=== PATIENT | female | born 1940 | race Caucasian/White ===

== ENCOUNTER 2022-04-19 02:07 | Inpatient (IN) | payer OTHER ==
[2022-04-19] MEDS ORDERED: IBUPROFEN 400 MG TAB ONE (02:43)
[2022-04-19] MEDS ORDERED: IBUPROFEN 200 MG TAB PO ONE (02:43)
[2022-04-19] MEDS ORDERED: MAGNESIUM SULFATE 1 gm IVPB 1 GM/100 ML BAG IV ONE (02:44)
[2022-04-19] MEDS ORDERED: NA CHLORIDE 0.9% 1,000 ML ONE ×3 (02:44→08:22)
[2022-04-19 03:17] LABS: Absolute Lymphocytes (CBC) 0.5 K/uL (0.7-4.9); Hematocrit 32.2 % (36.0-45.0); Lymphocytes % 1.9 % (15.3-44.8); MCV 87.1 fL (80-100); MPV 7.4 fL (7.6-11.3)
[2022-04-19 03:20] LABS: Protime INR 1.35
[2022-04-19 03:22] LABS: Urine Blood 1+ (Negative); Urine Glucose Negative (Negative); Urine Protein 1+ (Negative)
[2022-04-19 03:27] LABS: Albumin 2.2 g/dL (3.4-5.0); Bilirubin Total 0.8 mg/dL (0.2-1.0); Potassium 3.5 mmol/L (3.5-5.1)
[2022-04-19 03:38] LABS: SARS-COV-2 RT PCR NEGATIVE (NEGATIVE)
[2022-04-19] MEDS ORDERED: NA CHLORIDE 0.9% 100 ML IV ONE ×2 (03:38→08:21)
[2022-04-19] MEDS ORDERED: PIPERACIL/TAZO 3.375 GM VIAL IV ONE ×2 (03:38→08:22)
[2022-04-19 03:54] LABS: Urine Bacteria <20 /HPF (<20); Urine Mucus Slight /HPF (None Seen); Urine RBC <5 /HPF (None Seen)
[2022-04-19 04:22] LABS: Blood Morphology Comment NOT SEEN (NOT SEEN); Platelet Estimate ADEQ
[2022-04-19] MEDS ORDERED: AMIODARONE HCL 150 MG/3 ML INJ IV ONE (04:40)
[2022-04-19] MEDS ORDERED: AMIODARONE IN DEXTROSE,ISO-OSM 360 MG/200 ML BAG IV ONE (04:40)
[2022-04-19] MEDS ORDERED: D5W 100 ML IV ONE (04:40)
--- NOTE | 2022-04-19 05:26 | ER ---
Nurse's Notes [facility] Name: Prosper Ríos Age: 82 yrs Sex: Female : 1940 Arrival Date: 04/19/2022 Time: 02:09 Bed 5 Private MD: Diagnosis: Persistent atrial fibrillation-with RVR;Hypotension, unspecified;Dehydration;Diarrhea, unspecified Presentation: 04/19 02:10 Chief complaint: EMS states: She has been feeling weak with diarrhea and a cough. She kd3 went to [place] where she was tested for covid and flu and was negative but she still feels ill. Initial Sepsis Screen: Does the patient meet any 2 criteria? Temp <36.0*C (96.8*F)) or > 38.3*C (100.9*F). HR > 90 bpm. 02:10 Method Of Arrival: EMS: [facility] kd3 02:17 Coronavirus screen: Vaccine status: Patient reports receiving the 2nd dose of the covid kd3 vaccine. Ebola Screen: No symptoms or risks identified at this time. 02:18 Initial Sepsis Screen: Does the patient have a suspected source of infection? Yes: kd3 Productive cough/pneumonia. Risk Assessment: Do you want to hurt yourself or someone else? Patient reports no desire to harm self or others. Onset of symptoms was April 19, 2022. 02:18 Acuity: DWAYNE 3 kd3 Triage Assessment: 02:18 General: Appears ill, Behavior is calm, cooperative. Pain: Denies pain. Neuro: Level of kd3 Consciousness is awake, alert, obeys commands. Cardiovascular: Patient's skin is warm and dry. Respiratory: Breath sounds with crackles bilaterally. Historical: - Allergies: 02:18 Neomycin Sulfate; kd3 02:18 Sulfa (Sulfonamide Antibiotics); kd3 - Immunization history:: Adult Immunizations up to date. - Social history:: Smoking status: unknown. - Family history:: not pertinent. - Hospitalizations: : No recent hospitalization is reported. Screenin:20 [facility] ED Fall Risk Assessment (Adult) History of falling in the last 3 months, kd3 including since admission No falls in past 3 months (0 pts) Confusion or Disorientation No (0 pts) Intoxicated or Sedated No (0 pts) Impaired Gait No (0 pts) Mobility Assist Device Used No (0 pt) Altered Elimination No (0 pt) Score/Fall Risk Level 0 - 2 = Low Risk. Abuse screen: Denies threats or abuse. Denies injuries from another. Nutritional screening: No deficits noted. Tuberculosis screening: No symptoms or risk factors identified. Assessment: 03:28 General: Appears ill, Behavior is calm, cooperative. Neuro: Level of Consciousness is kd3 awake, alert, obeys commands, Oriented to person, place, time, situation. Cardiovascular: Patient's skin is warm and dry. Respiratory: Airway is patent Trachea midline Respiratory effort is even, unlabored, Respiratory pattern is regular, symmetrical. GI: Reports diarrhea. 05:23 General: Appears comfortable, Behavior is calm, cooperative. Neuro: Level of kd3 Consciousness is awake, alert, obeys commands, Oriented to person, place, time, situation. Cardiovascular: Patient's skin is warm and dry. Respiratory: Airway is patent Trachea midline Respiratory effort is even, unlabored, Respiratory pattern is regular, symmetrical, Sputum is thick, green. 05:28 Reassessment: Patient and/or family updated on plan of care and expected duration. Pain kd3 level reassessed. Patient is alert, oriented x 3, equal unlabored respirations, skin warm/dry/pink. 10:37 Reassessment: Levophed titrated down to 0.15 mcg/kg per Dr. Roy. [facility] 11:40 Reassessment: new amiodarone infusing at 0.5 mg/min. please see [facility] for further [facility] charting. 11:52 Reassessment: Levophed titrated down to 0.1 mcg/kg per Dr. Roy. [facility] 13:03 Reassessment: attempted to call report to ICU. stated she is transferring a patient to [facility] 4th floor to make room for this patient and will call me back. Vital Signs: 02:10 BP 131 / 83; Pulse 120; Resp 19; Temp 100.9; Pulse Ox 98% on R/A; Weight 49.9 kg; kd3 Height 5 ft. 4 in. (162.56 cm); 03:28 BP 99 / 58; Pulse 142; Resp 21; Temp 98.7(O); Pulse Ox 100% on R/A; kd3 04:49 BP 82 / 59; Pulse 127; Resp 18; Pulse Ox 95% on R/A; kd3 05:23 BP 71 / 58; Pulse 110; Resp 20; Pulse Ox 94% on R/A; kd3 06:14 BP 76 / 63; Pulse 105; Resp 19; Pulse Ox 98% on R/A; kd3 06:36 BP 104 / 73; Pulse 113; Resp 19; Pulse Ox 97% ; kd3 02:10 Body Mass Index 18.88 (49.90 kg, 162.56 cm) kd3 ED Course: 02:09 Patient arrived in ED. wm 02:10 Chema Donald MD is Attending Physician. rn 02:10 Marah Gudino RN is Primary Nurse. kd3 02:18 Triage completed. kd3 02:18 Arm band placed on left wrist. kd3 02:20 Patient has correct armband on for positive identification. kd3 02:35 Inserted saline lock: 20 gauge in right antecubital area, using aseptic technique. kd3 Blood collected. Maintain EMS IV. Dressing intact. Good blood return noted. Site clean \T\ dry. Gauge \T\ site: 20 g r forearm . 02:35 Patient maintains SpO2 saturation greater than 95% on room air. kd3 02:37 Chest Single View XRAY In Process Unspecified. EDMS 02:39 EKG done, by ED staff, reviewed by Chema Donald MD. tw5 03:28 COVID-19/FLU A+B Sent. kd3 03:28 Blood Culture Adult (2) Sent. kd3 03:28 Lactate w/ 2H reflex if indic. Sent. kd3 03:28 Urine Culture Sent. kd3 03:28 Urine Microscopic Only Sent. kd3 04:06 CT Abd/Pelvis - IV Contrast Only In Process Unspecified. EDMS 05:25 Ruiz Roy MD is Hospitalizing Provider. rn 05:39 Assisted provider with central line placement. Set up central line tray. as6 05:41 Assisted provider with central line placement. Triple lumen line placed in right as6 femoral. Line placed by Chema Donald MD Placement verified by blood return, Dressed with Tegaderm, Blood was collected. Patient tolerated well. 11:40 Patient admitted, IV remains in place. kc6 Administered Medications: 02:53 Drug: NS 0.9% 1000 ml Route: IV; Rate: 1000 ml; Site: right forearm; tw5 05:29 Follow up: IV Status: Completed infusion; IV Intake: 1000ml kd3 02:53 Drug: Motrin (ibuprofen) 600 mg Route: PO; tw5 03:27 Follow up: Response: No adverse reaction; Temperature is decreased kd3 02:53 Drug: Magnesium Sulfate 1 grams Route: IVPB; Infused Over: 1 hrs; Site: right tw5 antecubital; 05:29 Follow up: IV Status: Completed infusion kd3 03:27 Drug: NS 0.9% 1000 ml Route: IV; Rate: 1000 ml; Site: right antecubital; kd3 05:28 Follow up: IV Status: Completed infusion; IV Intake: 1000ml kd3 04:49 Drug: amiodarone 150 mg Volume: 100 ml; Route: IVPB; Infused Over: 10 mins; Site: right kd3 antecubital; 05:28 Follow up: IV Status: Completed infusion; IV Intake: 100ml kd3 05:02 Drug: Zosyn (piperacillin-tazobactam) 3.375 grams Route: IVPB; Infused Over: 60 mins; kd3 Site: right forearm; 05:02 Follow up: IV Status: Completed infusion; IV Intake: 100ml kd3 05:02 Drug: amiodarone 900 mg, D5W 500 ml Route: IVPB; Rate: 1 mg/min; Site: right kd3 antecubital; 06:13 Drug: Levophed (norepinephrine) 0.1 mcg/kg/min Route: IV; Rate: calculated rate; Site: kd3 right femoral; 06:13 Follow up: Rate change 0.2 mcg/kg/min kd3 Medication: 02:20 VIS not applicable for this client. kd3 Intake: 05:02 IV: 100ml; Total: 100ml. kd3 05:28 IV: 100ml; Total: 200ml. kd3 05:28 IV: 1000ml; Total: 1200ml. kd3 05:29 IV: 1000ml; Total: 2200ml. kd3 Output: 03:29 Urine: 500ml (Straight Cath); Total: 500ml. kd3 Outcome: 05:26 Decision to Hospitalize by Provider. rn 11:40 Admitted to ER Hold. Please see [facility] for further documentation. kc6 11:40 Condition: stable 11:40 Instructed on the need for admit. 14:29 Patient left the ED. jl7 Signatures: Dispatcher [employer] EDSC Chema Donald MD MD rn Leal, Jahala, RN RN jl7 Valery Estrada Tiffany tw5 Daniel Gaytan RN RN as6 Marah Gudino RN RN kd3 Indu Fajardo RN RN kc6 Corrections: (The following items were deleted from the chart) 02:19 02:18 Allergies: No Known Allergies; kd3 kd3 11:41 11:40 Reassessment: new amiodarone infusing at 0.5 mg/min kc6 kc6
--- NOTE | 2022-04-19 05:26 | EDPHYS ---
Physician Documentation [facility] Name: Prosper Ríos Age: 82 yrs Sex: Female : 1940 Arrival Date: 04/19/2022 Time: 02:09 Bed 5 Private MD: ED Physician Chema Donald HPI: 04/19 02:37 This 82 yrs old Female presents to ER via EMS with complaints of Weakness, Diarrhea. rn 02:37 The patient presents to the emergency department with weakness of the. rn 02:38 The patient presents to the emergency department with diarrhea. Onset: The rn symptoms/episode began/occurred 3 day(s) ago. Possible causes: unknown. The symptoms are aggravated by nothing. The symptoms are alleviated by nothing. Associated signs and symptoms: Pertinent positives: diarrhea, fever, nausea, cough. Severity of symptoms: At their worst the symptoms were moderate in the emergency department the symptoms are unchanged. The patient has not experienced similar symptoms in the past. The patient has been recently seen by a physician:. Pt reports feeling sick over last few days, with cough/congestion/nausea/diarrhea. Grandchildren had similar illness recently and she is concerned she caught it from them. Recently tested for COVID/Flu and was neg. Reports generalized weakness and reports BP has been running low, in 80s systolic. . Historical: - Allergies: 02:18 Neomycin Sulfate; kd3 02:18 Sulfa (Sulfonamide Antibiotics); kd3 - Immunization history:: Adult Immunizations up to date. - Social history:: Smoking status: unknown. - Family history:: not pertinent. - Hospitalizations: : No recent hospitalization is reported. ROS: 02:38 Constitutional: + fever Eyes: Negative for injury, pain, redness, and discharge, Neck: rn Negative for injury, pain, and swelling, Cardiovascular: + heart racing Respiratory: + cough Abdomen/GI: + diarrhea MS/Extremity: Negative for injury and deformity, Skin: Negative for injury, rash, and discoloration, Neuro: + generalized weakness Exam: 02:38 Constitutional: This is a well developed, well nourished patient who is awake, alert, rn and in no acute distress. Head/Face: Normocephalic, atraumatic. Eyes: sunken eyes ENT: very dry MM Cardiovascular: Tachycardic, regular Respiratory: No increased work of breathing, no retractions or nasal flaring. Abdomen/GI: soft, non-tender, no peritoneal signs Skin: Warm, dry MS/ Extremity: Pulses equal, no cyanosis. Neuro: Awake and alert, GCS 15 02:51 ECG was reviewed by the Attending Physician. rn Vital Signs: 02:10 BP 131 / 83; Pulse 120; Resp 19; Temp 100.9; Pulse Ox 98% on R/A; Weight 49.9 kg; kd3 Height 5 ft. 4 in. (162.56 cm); 03:28 BP 99 / 58; Pulse 142; Resp 21; Temp 98.7(O); Pulse Ox 100% on R/A; kd3 04:49 BP 82 / 59; Pulse 127; Resp 18; Pulse Ox 95% on R/A; kd3 05:23 BP 71 / 58; Pulse 110; Resp 20; Pulse Ox 94% on R/A; kd3 06:14 BP 76 / 63; Pulse 105; Resp 19; Pulse Ox 98% on R/A; kd3 06:36 BP 104 / 73; Pulse 113; Resp 19; Pulse Ox 97% ; kd3 02:10 Body Mass Index 18.88 (49.90 kg, 162.56 cm) kd3 Procedures: 05:55 Central Line: the site was prepped with Betadine, in sterile fashion, a triple lumen rn catheter was inserted, in the right femoral vein, in 1 attempts. placement was verified, by blood return, the site was dressed with Tegaderm, using sterile technique, the patient tolerated the procedure, well. MDM: 02:10 Patient medically screened. rn 02:47 ED course: Pt had 3 transient episodes of SVT, 2 resolved within a minute or so, one rn require conversion with vagal maneuver. . 03:28 ED course: 1L fluids given by EMS. 2 L fluid boluses ordered here. . rn 04:27 Differential diagnosis: Nonspecific abd pain, gastritis, pancreatitis, appendicitis, rn diverticulitis, viral gastroenteritis, gastroenteritis, viral syndrome, COVID, FLu, dehydration, afib with rvr, electrolyte disorder, acute renal failure. Data reviewed: vital signs, nurses notes, lab test result(s). ED course: Pt afebrile now, feels slightly better, HR still in 140s and BP borderline despite 2.5 L bolus, decision made to treat afib with RVR to try and correct BP, amiodarone chosen due to low blood pressure. Pt and report never diagnosed with afib before. . 04:55 ED course: HR with marked improvement from 140s/150s to 110s with BP holding steady. Pt rn feels better.. 04:59 I considered the following discharge prescriptions or medication management in the rn emergency department Medications were administered in the Emergency Department. See MAR. Independent interpretation of the following test(s) in the Emergency Department EKG: See my EKG interpretation above X-Ray: My interpretation is CXR neg for lobar pneumonia or pneumothorax. Historians other than the Patient: Spouse/Significant Other: States no previous hx of afib. Post IV fluid administration reassessment for Sepsis: Client prescribed 30 mL/kg IVF. Sepsis focused reassessment complete. Current patient vital signs reviewed: Yes. Counseling: I had a detailed discussion with the patient and/or guardian regarding: the historical points, exam findings, and any diagnostic results supporting the discharge/admit diagnosis, lab results, radiology results, the need for further work-up and treatment in the hospital. ED course: Patient without focal source at this time, most likely viral source given grandchildren will recently. + elevated lactate and given IVF with some improvement in BP. No signs of shock at this time. . 05:24 Response to treatment: the patient's symptoms have mildly improved after treatment, and rn as a result, I will admit patient. 05:56 ED course: Central line placed for persistent hypotension despite more than 30ml/kg rn bolus and HR control. Will start pressor at low dose to maintain MAP > 65. Pt reports feels better entire time this was happening. . 06:32 ED course: Lovenox ordered in [employer] for her afib, notified nurse and not ordered in rn [employer] as to not have double administration.. 04/19 02:10 Order name: Blood Culture Adult (2) rn 04/19 02:10 Order name: CBC with Diff; Complete Time: 04:22 rn 04/19 02:10 Order name: CMP; Complete Time: 03:48 rn 04/19 02:10 Order name: Lactate w/ 2H reflex if indic.; Complete Time: 03:48 rn 04/19 02:10 Order name: Protime (+inr); Complete Time: 03:27 rn 04/19 02:10 Order name: Ptt, Activated; Complete Time: 03:27 rn 04/19 02:10 Order name: Urine Culture rn 04/19 02:10 Order name: Urine Microscopic Only; Complete Time: 04:12 rn 04/19 02:10 Order name: Chest Single View XRAY rn 04/19 02:10 Order name: COVID-19/FLU A+B; Complete Time: 03:48 rn 04/19 03:22 Order name: Urine Dipstick-Ancillary; Complete Time: 03:27 EDMS 04/19 03:30 Order name: Manual Differential; Complete Time: 04:22 EDMS 04/19 05:09 Order name: Lactate w/ 2H reflex if indic.: repeat at 0530 rn 04/19 06:33 Order name: Lactate Sepsis 2 HR Follow-up EDMN 04/19 02:10 Order name: EKG; Complete Time: 02:12 rn 04/19 02:10 Order name: Accucheck; Complete Time: 05:03 rn 04/19 02:10 Order name: Cardiac monitoring; Complete Time: 02:54 rn 04/19 02:10 Order name: EKG - Nurse/Tech; Complete Time: 02:54 rn 04/19 02:10 Order name: IV Saline Lock - Large Bore; Complete Time: 02:54 rn 04/19 02:10 Order name: Labs collected and sent; Complete Time: 02:54 rn 04/19 02:10 Order name: CT Abd/Pelvis - IV Contrast Only rn 04/19 08:32 Order name: CT EDMN 04/19 02:10 Order name: O2 Per Protocol; Complete Time: 03:17 rn 04/19 02:10 Order name: O2 Sat Monitoring; Complete Time: 03:17 rn 04/19 02:10 Order name: Vital Signs; Complete Time: 03:18 rn EC:51 Rate is 118 beats/min. Rhythm is regular. QRS Coleman is Normal. MN interval is normal. rn QRS interval is normal. QT interval is normal. No Q waves. T waves are Normal. No ST changes noted. Clinical impression: Sinus tachycardia. Interpreted by me. Reviewed by me. Administered Medications: 02:53 Drug: NS 0.9% 1000 ml Route: IV; Rate: 1000 ml; Site: right forearm; tw5 05:29 Follow up: IV Status: Completed infusion; IV Intake: 1000ml kd3 02:53 Drug: Motrin (ibuprofen) 600 mg Route: PO; tw5 03:27 Follow up: Response: No adverse reaction; Temperature is decreased kd3 02:53 Drug: Magnesium Sulfate 1 grams Route: IVPB; Infused Over: 1 hrs; Site: right tw5 antecubital; 05:29 Follow up: IV Status: Completed infusion kd3 03:27 Drug: NS 0.9% 1000 ml Route: IV; Rate: 1000 ml; Site: right antecubital; kd3 05:28 Follow up: IV Status: Completed infusion; IV Intake: 1000ml kd3 04:49 Drug: amiodarone 150 mg Volume: 100 ml; Route: IVPB; Infused Over: 10 mins; Site: right kd3 antecubital; 05:28 Follow up: IV Status: Completed infusion; IV Intake: 100ml kd3 05:02 Drug: Zosyn (piperacillin-tazobactam) 3.375 grams Route: IVPB; Infused Over: 60 mins; kd3 Site: right forearm; 05:02 Follow up: IV Status: Completed infusion; IV Intake: 100ml kd3 05:02 Drug: amiodarone 900 mg, D5W 500 ml Route: IVPB; Rate: 1 mg/min; Site: right kd3 antecubital; 06:13 Drug: Levophed (norepinephrine) 0.1 mcg/kg/min Route: IV; Rate: calculated rate; Site: kd3 right femoral; 06:13 Follow up: Rate change 0.2 mcg/kg/min kd3 Disposition Summary: 04/19/22 05:26 Hospitalization Ordered Hospitalization Status: Inpatient Admission rn Provider: Ruiz Roy rn Condition: Fair rn Problem: new rn Symptoms: have improved rn Bed/Room Type: Standard rn Location: Intensive Care Unit(04/19/22 12:51) dw Room Assignment: 2-(04/19/22 12:51) Diagnosis - Persistent atrial fibrillation - with RVR rn - Hypotension, unspecified rn - Dehydration rn - Diarrhea, unspecified rn Forms: - Medication Reconciliation Form rn - SBAR form machine turner time excluding procedures: 05:24 Critical care time: Bedside Care: 35 minutes. Total time: 35 minutes rn Signatures: Dispatcher [facility] EDMS [place], Poornima, RN RN dw Chema Donald MD MD rn Garcia, Cindy, RN RN cg Wood, Tiffany tw5 Marah Gudino RN RN kd3 Corrections: (The following items were deleted from the chart) 02:19 02:18 Allergies: No Known Allergies; kd3 kd3 06:32 05:26 Intensive Care Unit rn cg 06:32 05:26 rn cg 12:51 06:32 [facility] ER HOLD cg dw 12:51 06:32 ERHOLD- cg dw
[2022-04-19] MEDS ORDERED: NOREPINEPHRINE BITARTRATE/D5W 4 MG/250 ML BAG IV ONE ×2 (06:09→12:48)
[2022-04-19] MEDS ORDERED: ONDANSETRON 4 MG/2 ML VIAL IV PRN (06:37)
[2022-04-19] MEDS ORDERED: ENOXAPARIN 100 MG/ML SYR SQ SCH (06:37)
[2022-04-19] MEDS ORDERED: D5.45NS W/KCL 20MEQ 1,000 ML IV SCH (06:37)
[2022-04-19] MEDS ORDERED: ACETAMINOPHEN 500 MG TAB PO PRN (06:37)
[2022-04-19] MEDS ORDERED: AMIODARONE HCL 900 MG in Dextrose 5%-Water 482 ML IV SCH (06:37)
[2022-04-19] MEDS ORDERED: D5.45NS W/KCL 20MEQ 1,000 ML IV ONE (06:44)
--- NOTE | 2022-04-19 08:31 | RAD REPORT ---
EXAM DESCRIPTION: CT - Thorax Wo Con - 04/19/2022 8:20 am CLINICAL HISTORY: sob COMPARISON: 2011 TECHNIQUE: Computed axial tomography of the chest was obtained. Contrast was not requested. All CT scans are performed using dose optimization technique as appropriate and may include automated exposure control or mA/KV adjustment according to patient size. FINDINGS: The evaluation of mediastinum, simi and vessels is limited secondary to lack of IV contras t administration. 4 x 2 centimeter right upper lobe consolidation. Mild patchy opacities within the lungs bilaterally. Left upper lobe opacity without significant change from the prior exam likely a combination of bronch iectasis and scarring. Mild additional chronic appearing lung opacities. Mild right middle lobe and l ingular atelectasis No mediastinal or hilar lymphadenopathy is seen. Small bilateral pleural effusions. No pericardial fusion IMPRESSION: Small right upper lobe consolidation probably pneumonia Additional mild bilateral pulmonary opacities likely additional infection. Small bilateral pleural effusions
[2022-04-19] MEDS: NA CHLORIDE 0.9% 1,000 ML IV SCH ×2 (08:56→18:01)
[2022-04-19] MEDS: PIPER TAZO 3.375 GM in NA CHLORIDE 0.9% 100 ML IV SCH ×2 (08:57→18:00)
--- NOTE | 2022-04-19 14:28 | ECHO ---
HEIGHT: 5 ft 4 in WEIGHT: 110 lb 0.171 oz DATE OF STUDY: 04/19/[address]: Leonardo Roy MD 2-DIMENSIONAL: YES M.MODE: YES DOPPLER: YES COLOR FLOW: YES TDS: PORTABLE: YES DEFINITY: BUBBLE STUDY: DIAGNOSIS: ATRIAL FIBRILLATION CARDIAC HISTORY: CATHERIZATION: NO SURGERY: NO PROSTHETIC VALVE: NO PACEMAKER: NO MEASUREMENTS (cm) DIASTOLIC (NORMALS) SYSTOLIC (NORMALS) IVSd 0.8 (0.6-1.2) LA Diam 2.3 (1.9-4.0) LVEF 54% LVIDd 3.6 (3.5-5.7) LVIDs 2.6 (2.0-3.5) %FS 28% LVPWd 1.0 (0.6-1.2) Ao Diam 2.4 (2.0-3.7) 2 DIMENSIONAL ASSESSMENT: RIGHT ATRIUM: NORMAL LEFT ATRIUM: NORMAL RIGHT VENTRICLE: NORMAL LEFT VENTRICLE: NORMAL TRICUSPID VALVE: MILD TRICUSPID REGURGITATION MITRAL VALVE: MILD MITRAL REGURGITATION PULMONIC VALVE: NORMAL AORTIC VALVE: NORMAL PERICARDIAL EFFUSION: SMALL AORTIC ROOT: NORMAL LEFT VENTRICULAR WALL MOTION: NORMAL DOPPLER/COLOR FLOW: SEE BELOW COMMENTS: 1. NORMAL LEFT VENTRICULAR EJECTION FRACTION 50-55% 2. ATRIAL FIBRILLATION 3. MILD MITRAL REGURGITATION 4. MILD TRICUSPID REGURGITATION 5. SMAL PERICARDIAL EFFUSION TECHNOLOGIST: BROCK LANDON
--- NOTE | 2022-04-19 16:10 | RAD REPORT ---
EXAM DESCRIPTION: RAD - Chest Single View - 04/19/2022 2:36 am CLINICAL HISTORY: The patient is 82 years old and is Female; COUGH TECHNIQUE: Frontal view of the chest. COMPARISON: No relevant prior studies available. FINDINGS: Lungs: Prominent interstitial markings which may represent chronic changes and/or inters titial edema. Peribronchial thickening. Linear opacity in the mid right lung suggestive of fluid in the fissure. Pleural space: Unremarkable. No pneumothorax. Heart: Unremarkable. Mediastinum: Unremarkable. Bones/joints: Unremarkable. Soft tissues: Clips overlying the left axillary region. IMPRESSION: Prominent interstitial markings which may represent chronic changes and/or interstitial edema. Peribronchial thickening. Electronically signed by: Godfrey Holcomb MD 04/19/2022 2:50 AM POLITICAL SCIENCE RESEARCH ASSISTANT Due to temporary technical issues with the PACS/Fluency reporting system, reports are being signed by the in house radiologists without review as a courtesy to insure prompt reporting. The interpreting radiologist is fully responsible for the content of the report.
--- NOTE | 2022-04-19 16:13 | RAD REPORT ---
EXAM DESCRIPTION: CT - Abdomen Pelvis W Contrast - 04/19/2022 6:08 am CLINICAL HISTORY: The patient is 82 years old and is Female; fever, diarrhea TECHNIQUE: Axial computed tomography images of the abdomen and pelvis with intravenous contrast. S agittal and coronal reformatted images were created and reviewed. This CT exam was performed using one or more of the following dose reduction techniques: automated exposure control, adjustment of t he mA and/or kV according to patient size, and/or use of iterative reconstruction technique. COMPARISON: No relevant prior studies available. FINDINGS: LUNG BASES: Suggestion of minimal atelectasis within the right middle lobe is present. PLEURAL SPACE: Bilateral pleural effusions are present, left greater than right. ABDOMEN: LIVER: Suggestion of a few small cyst within the liver are noted. GALLBLADDER AND BILE DUCTS: Multiple gallstones fill the gallbladder. Several gallstones demonst rates central air. There is no gallbladder wall thickening or pericholecystic fluid. PANCREAS: No ductal dilation. No mass. SPLEEN: Unremarkable. ADRENALS: Unremarkable. No mass. KIDNEYS AND URETERS: Exophytic left renal cyst are present. No follow-up imaging is recommended. The kidneys enhance symmetrically. No obstructing renal or ureteral calculus is seen. STOMACH AND BOWEL: Stomach is minimally filled with fluid and air. The small bowel is normal in caliber. Stool is present throughout colon. A few scattered colonic diverticula are noted without anders rounding inflammation. There is no mucosal thickening or evidence of obstruction. PELVIS: APPENDIX: No findings to suggest acute appendicitis. BLADDER: Unremarkable. No mass. REPRODUCTIVE: Unremarkable as visualized. ABDOMEN and PELVIS: INTRAPERITONEAL SPACE: Unremarkable. No free air. No significant fluid collection. BONES/JOINTS: The bones are mildly osteopenic. There is no acute fracture. SOFT TISSUES: The soft tissues are normal. VASCULATURE: Unremarkable. No abdominal aortic aneurysm. LYMPH NODES: Unremarkable. No enlarged lymph nodes. IMPRESSION: 1. Cholelithiasis without findings to suggest cholecystitis. 2. Colonic diverticulosis. Electronically signed by: Sarah Rasmussen MD 04/19/2022 4:29 AM TECHNOLOGY RECRUITER Due to temporary technical issues with the PACS/Fluency reporting system, reports are being signed by the in house radiologists without review as a courtesy to insure prompt reporting. The interpreting radiologist is fully responsible for the content of the report.
[2022-04-19 16:18] VITALS: BMI 22.0
[2022-04-19 17:32] LABS: Magnesium 2.2 mg/dL (1.6-2.4); Potassium 3.3 mmol/L (3.5-5.1)
[2022-04-19 17:40] LABS: Absolute Lymphocytes (CBC) 0.5 K/uL (0.7-4.9); Hematocrit 30.6 % (36.0-45.0); Lymphocytes % 1.9 % (15.3-44.8); MCV 87.3 fL (80-100); MPV 7.3 fL (7.6-11.3)
[2022-04-19] MEDS: ENOXAPARIN 60 MG/0.6 ML SQ SCH (18:00)
--- NOTE | 2022-04-19 18:25 | CON ---
Date of Consultation: 04/19/2022 Reason For Consultation: Atrial fibrillation with rapid ventricular response. History Of Present Illness: This is an 82-year-old female who has history of atrial fibrillation, hy pertension, presented to the emergency room because of feeling weak. She has been having diarrhea an d cough. She apparently received some antibiotics for some sort of infection recently and then start ed having aggressive diarrhea. was checking her blood pressure and was running in the mid 50 s as per his report. He brought her in to the emergency room. The patient appears to be very weak. Denies having any chest pain. Initially, her heart rate was in the 170s without any chest pain. Past Medical History: As outlined above in HPI. Medications: Refer to reconciliation sheet for detailed list. Allergies: NEOMYCIN AND SULFA. Family History: No premature coronary artery disease or cancer. Social History: She does not smoke or drink. Does not use any drugs. Review of Systems: All systems reviewed and they were negative except for mentioned in HPI. Physical Examination: Vital Signs: Temperature is 98.8, heart rate is 115, breathing at 22, blood pressure is 101/78, satu rating 97%. General: Pleasant, elderly female, in no apparent distress. Head and Neck: Pupils are equal, reactive to light. Intact eye movements. No JVD. No cervical lym phadenopathy. Neck is supple. Thyroid is not enlarged. Lungs: Clear to auscultation bilaterally. No rhonchi, rales, or crackles. No accessory muscle use. Heart: Irregularly irregular. No extra sounds. Abdomen: Soft, nontender. Bowel sounds positive. No organomegaly. No masses or hernia. No rigidi ty or rebound. Extremities: No clubbing, cyanosis. Intact pulses. Skin: No rashes or nodules. Neurologic: Alert, awake, oriented x3. No acute focal deficits appreciated. Investigations: BUN 13, creatinine 0.63. Hemoglobin is 10.8 and white blood cell count is 24.4. Assessment/recommendation: 1.Atrial fibrillation with rapid ventricular response. She is slowing down nicely on amiodarone dri p to continue full 24 hours of amiodarone load and then switch to oral medications after that and thi s patient will need some sort of stroke for further prevention to be discussed later at discharge. 2.Severe leukocytosis with diarrhea, possible Clostridium difficile colitis and sample is to be rose ected to be tested for Clostridium difficile colitis. 3.Severe dehydration with hypotension and shock condition, requiring pressors. Blood pressure is be tter now. Continue current supportive measures and infectious source could be the diarrhea with Clos tridium difficile colitis as a possibility. SR/MODL Voice ID: [id number] Report ID: [id number]
[2022-04-19] MEDS: NOREPINEPHRINE BITARTRATE/D5W 4 MG/250 ML BAG IV SCH (19:00)
[2022-04-19] MEDS ORDERED: ALPRAZOLAM 0.25 MG TABLET PO PRN (20:14)
[2022-04-19] MEDS: VANCOMYCIN ORAL SOLN 250 MG/5 ML OSYR PO SCH (21:00)
[2022-04-19] MEDS ORDERED: VANCOMYCIN 1 GM/VIAL ONE (21:23)
[2022-04-19] MEDS: KCL 20 MEQ/100 mL IVPB 20 MEQ/100 ML BAG IV SCH ×2 (21:31→23:37)
[2022-04-20] MEDS: PIPER TAZO 3.375 GM in NA CHLORIDE 0.9% 100 ML IV SCH ×3 (02:00→17:00)
[2022-04-20] MEDS: VANCOMYCIN ORAL SOLN 250 MG/5 ML OSYR PO SCH ×4 (02:41→19:51)
[2022-04-20] MEDS: NOREPINEPHRINE BITARTRATE/D5W 4 MG/250 ML BAG IV SCH (03:17)
[2022-04-20 05:22] LABS: Absolute Lymphocytes (CBC) 0.8 K/uL (0.7-4.9); Hematocrit 29.2 % (36.0-45.0); Lymphocytes % 3.5 % (15.3-44.8); MCV 87.8 fL (80-100); MPV 7.5 fL (7.6-11.3); RBC Red Blood Cell Count 3.33 M/uL (3.86-4.86)
[2022-04-20 05:37] LABS: Potassium 3.7 mmol/L (3.5-5.1)
[2022-04-20] MEDS: ENOXAPARIN 60 MG/0.6 ML SQ SCH ×2 (06:38→17:45)
--- NOTE | 2022-04-20 07:11 | HP ---
Date of Admission: 04/19/2022 Chief Complaint: Diarrhea and feeling weak. History Of Present Illness: This is an 82-year-old very pleasant female patient, who was doing fine in her normal, usual state of health until April 09, 2022. She had some cough, congestion and she [facility] here in town and she was sent home with cephalexin, which she took it as prescribed. She was doing fine until about 2 days ago, she started to have fever and diarrhea. She took some Imodium for the diarrhea at home, but she has been feeling extremely weak. I talked to her via tele visit late last night around 8 p.m. or so and talked to her as well. Her sys tolic blood pressure at home was around 97 as reported by the patient's and she denied any ab dominal pain, nausea, or vomiting. When I was talking to her, she was feeling better compared to ear lier part of the day. She was advised to drink 2 bottles of Gatorade and come see me next day daquan sen, which is this morning to come at office around 8 o'clock for further evaluation. 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 There was no free fall. was able to assist her to get on the floor and he called 911, and patient was brought into em ergency room. After she came into emergency room, she was evaluated. The patient had atrial fibrill ation with rapid ventricular rate. She was started on IV fluid. Her lactic acid level was evaluated . As per sepsis protocol, IV fluid was given. She was started on amiodarone, IV antibiotics, Zosyn, and Lovenox was started. Her condition had stabilized and improved and I saw her this morning in e emergency room. Her was present with her at bedside. The patient reported that she was fe eling better. Denies any chest pain. No shortness of breath. Allergies: TO SULFA, CAUSING RASH; NEOMYCIN, CAUSING RASH AND ITCHING. Medications: At home she takes at least 60 mg daily, Claritin 10 mg daily as needed for allergies, e stradiol vaginal cream, vitamin D3 1000 units daily, and Caltrate plus D 1 tablet daily. Review of Systems: Constitutional: As mentioned above. GI: As mentioned above. All other systems reviewed and negative. Past Medical History: Significant for allergic rhinitis, hyperlipidemia, diverticulosis, left breast cancer, osteopenia. Past Surgical History: Bilateral mastectomy, hysterectomy, D and C. Family History: Not pertinent. Social History: Negative for smoking and alcohol use is occasional. Physical Examination: Vital Signs: When she first came into emergency room, temperature 98.3, pulse 124, respiratory rate 26, blood pressure 102/69, oxygen saturation 97%. Height 5 feet 4 inches, weight 110 pounds. General: Awake, alert, oriented, not in distress. HEENT: Head atraumatic, normocephalic. Conjunctivae nonerythematous. Sclerae white. Mouth, no thr ush or edema noted. Ears/Nose, no mass, lesion, discharge noted. Neck: Supple. No JVD, lymph nodes, bruit, thyromegaly noted. Lungs: Bilateral good equal air entry. Clear to auscultation. No rhonchi. No rales. Heart: Rate is rapid and rhythm is irregularly irregular. Abdomen: Soft, bowel sounds normal. No guarding, rigidity, tenderness, mass, hepatosplenomegaly, dis tention, or bruit noted. Extremities: No leg edema. No calf tenderness. Skin: No rash, ulcer, cellulitis. Lymphatics: No lymph node enlargement in neck, supraclavicular, infraclavicular region. Neuro: No focal neurological deficit. Chest: Unremarkable. External Genitalia: Deferred. Rectal: Deferred. Laboratory Data: WBC 24.4, hemoglobin 10.8, platelets 514. Sodium 133, potassium 3.5, chloride 97, bicarb 24, BUN 13, creatinine 0.64, glucose 100. Lactic acid 2.6. Liver function tests unremarkable . Urinalysis 1+ blood and 1+ protein. Otherwise, negative COVID-19 test. Influenza A and B negativ e. CAT scan of abdomen and pelvis was reported as no acute intraabdominal changes and chest x-ray wa s reported as no acute intrathoracic changes. CT scan of the chest was done after I saw her, per ord er, and it showed right upper lobe consolidation with some patchy bilateral infiltrate. Impression: 1.Septic shock. 2.Atrial fibrillation with rapid ventricular rate, new onset. 3.Pneumonia. 4.Rule out Clostridium difficile colitis. 5.Volume depletion. 6.Left breast cancer. 7.Osteopenia. 8.Diverticulosis. 9.Allergic rhinitis. Plan: We will go ahead and admit to hospital for further evaluation and management of this problem. The patient is appropriate for inpatient and is expected to spend 2 midnights in hospital. The garrison ent will be admitted to intensive care unit. For pneumonia, we will go ahead and continue Zosyn, whi ch was started in emergency room and we will not add any other antibiotic like azithromycin or Levaqu in because of possible interaction with amiodarone. We will follow up on serial chest x-ray, as it b ecomes necessary. She is maintaining adequate oxygen saturation and no need for any oxygen replaceme nt therapy at this time. For her septic shock, the patient has received IV fluid according to sepsis protocol and we will continue current antibiotic, which is Zosyn per order. Follow up on culture re sults as necessary, make adjustment on antibiotics. We are clinical, definitely concerned about Clos tridium difficile colitis in view of her history, and I have ordered stool for C diff and plan is to start oral vancomycin therapy after stool specimen is collected. For atrial fibrillation, the patien t is on IV amiodarone drip. Cardiology consultation has been requested. Echo was ordered and we genia l continue Lovenox per order and she did receive her first dose in the emergency room. After I evalu ated her, I did communicate all the details with the patient's and the patient and later on t he patient's nephew, who is a colorectal surgeon, Dr. Telles, called and talked to me, and the garrison ent has given me her permission to communicate with him as well and all the details were discussed wi Dr. Telles, on multiple occasions throughout the day today. Later on this evening, I did go [facility] and visited the patient. She was in ICU. She was feeling much better, looking much better, compar ed to earlier this morning. When I saw her in ICU this evening, she had converted to sinus rhythm wi amiodarone. Her systolic blood pressure was around 109. She was maintaining oxygen saturation 97 % on room air and was feeling better, compared to earlier today. The patient has not had a bowel mov ement all day today, so I did talk to patient and recommended that clinically I am concerned about Cl ostridium difficile colitis and my recommendation is to go ahead and start her on oral vancomycin the rapy, and she wanted me to talk to her nephew, Dr. Telles, and if both of us agree on it, she has n o problems starting with empiric therapy. Echocardiogram result was available in the evening time, h ad shown ejection fraction of 54%, trace mitral regurgitation, and very small pericardial effusion. All these findings were discussed with the patient and later on Dr. Telles was contacted. Details were discussed and he also agrees to start on empiric therapy with vancomycin. I will see the patien t tomorrow morning. We will continue current Lovenox. We will repeat blood work tomorrow morning. ROSEMARIE/MODL Voice ID: [id number]
--- NOTE | 2022-04-20 10:51 | EKG ---
Test Date: 2022-04-19 Test Time: 02:34:40 Armored Vehicle Officer: MEASUREMENT RESULTS: Intervals: Rate: 182 [place]: QRSD: 62 QT: 246 QTc: 428 [place]: P: IL: QRS: 60 T: -64 INTERPRETIVE STATEMENTS: Supraventricular tachycardia Marked ST abnormality, possible inferior subendocardial injury Abnormal ECG Compared to ECG 04/19/2022 02:34:02 ST (T wave) deviation now present Sinus tachycardia no longer present Electronically Signed On 04-20-22 10:46:59 CHILI POWDER MIXER by Jaime Garcia
--- NOTE | 2022-04-20 10:51 | EKG ---
Test Date: 2022-04-19 Test Time: 02:36:14 Office Communication Professor: MEASUREMENT RESULTS: Intervals: Rate: 118 [place]: 136 QRSD: 68 QT: 310 QTc: 434 [place]: P: 67 [place]: 136 QRS: 60 T: 68 INTERPRETIVE STATEMENTS: Sinus tachycardia with premature atrial complexes Otherwise normal ECG Compared to ECG 04/19/2022 02:34:40 Atrial premature complex(es) now present Supraventricular tachycardia no longer present ST (T wave) deviation no longer present Electronically Signed On 04-20-22 10:46:58 CERTIFIED TECHNICIAN by Jaime Garcia
--- NOTE | 2022-04-20 10:52 | EKG ---
Test Date: 2022-04-19 Test Time: 02:34:02 Animal Husbandry Manager: MEASUREMENT RESULTS: Intervals: Rate: 114 [place]: 134 QRSD: 68 QT: 308 QTc: 424 [place]: P: 66 [place]: 134 QRS: 60 T: 58 INTERPRETIVE STATEMENTS: Sinus tachycardia Possible Left atrial enlargement Borderline ECG Compared to ECG 09/07/2014 11:01:09 Sinus rhythm no longer present Electronically Signed On 04-20-22 10:47:01 ORGANIZATIONAL EFFECTIVENESS CONSULTANT by Jaime Garcia
--- NOTE | 2022-04-20 19:33 | PN ---
Date of Progress Note: 04/20/2022 Subjective: Patient was seen this morning for followup. She was lying in bed in ICU. No new compla ints or problems reported. Feeling a lot better. Denies any abdominal pain, nausea, or vomiting. N o chest pain. No shortness of breath. Vital signs reviewed for last 24 hours. Intake, output recor ds reviewed. She remains on room air, maintaining adequate oxygen saturation. When I saw her, her o xygen saturation was 97%. She remains in sinus rhythm as well. Objective: Vital Signs: Reviewed. HEENT: Unremarkable. Lungs: Clear to auscultation. No rales. No wheezing. Heart: Sounds normal. Abdomen: Soft. Bowel sounds normal. No guarding, rigidity, tenderness, distention. Extremities: No leg edema. Laboratory Data: White count 22.7, hemoglobin 9.6, platelets 527. Sodium 139, potassium 3.7, chlori de 106, bicarb 25, BUN 9, creatinine 0.50, glucose 119. Impression: 1.Pneumonia. 2.Septic shock. 3.Rule out Clostridium difficile colitis. 4.Anemia, unspecified. 5.Volume depletion, resolved. 6.Paroxysmal atrial fibrillation. Plan: We will go ahead and continue current antibiotic which is Zosyn for pneumonia. We will contin ue vancomycin 125 mg p.o. q.6 hours for possible Clostridium difficile colitis. Patient has not had any bowel movement since she came into the hospital as she had taken some Imodium as an outpatient, b ut clinically we have high level of suspicion for Clostridium difficile colitis, so we will continue this empiric use of vancomycin per order at this time. Patient has received adequate amount of IV fl uid. We will go ahead and discontinue IV fluid, this morning, in order for us to avoid any fluid ove rload type of situation. Continue Lovenox per order and patient is on amiodarone for atrial fibrilla tion. We will try to wean off her vasopressor medication today and once we discontinue it, plan is t o transfer her out of ICU to regular room. Details of plan of treatment discussed with her and I als o called Dr. Telles and discussed details with him as well. We will repeat blood work tomorrow sebastián sy ROSEMARIE/MODL Voice ID: [id number] Report ID: [id number]
[2022-04-20] MEDS: AMIODARONE HCL 200 MG TAB PO SCH (19:51)
[2022-04-21] MEDS: PIPER TAZO 3.375 GM in NA CHLORIDE 0.9% 100 ML IV SCH ×3 (01:17→17:00)
[2022-04-21] MEDS: VANCOMYCIN ORAL SOLN 250 MG/5 ML OSYR PO SCH ×4 (02:57→20:49)
[2022-04-21 05:24] LABS: Absolute Lymphocytes (CBC) 0.7 K/uL (0.7-4.9); Hematocrit 27.4 % (36.0-45.0); Lymphocytes % 6.5 % (15.3-44.8); MCV 87.7 fL (80-100); RBC Red Blood Cell Count 3.13 M/uL (3.86-4.86)
[2022-04-21 05:41] LABS: Magnesium 2.1 mg/dL (1.6-2.4); Potassium 3.5 mmol/L (3.5-5.1)
[2022-04-21] MEDS: ENOXAPARIN 60 MG/0.6 ML SQ SCH ×2 (06:04→16:59)
[2022-04-21] MEDS: AMIODARONE HCL 200 MG TAB PO SCH ×2 (07:33→20:49)
[2022-04-21] MEDS ORDERED: POTASSIUM 25 MEQ EFFERV TAB PO ONE (09:00)
--- NOTE | 2022-04-21 11:38 | RAD REPORT ---
EXAM DESCRIPTION: RAD - Chest Single View - 04/21/2022 11:30 am CLINICAL HISTORY: pneumonia COMPARISON: Chest Single View dated 04/19/2022; Chest Pa And Lat (2 Views) dated 03/20/2022; CHEST PA AND LAT 2 VIEW dated 08/01/2009; Thorax Wo Con dated 04/19/2022 FINDINGS: Lines: None. Lungs: Similar to slight improvement in right mid lung airspace disease. Worsening airspace disease a t the left lung base. Pleural: The left pleural effusion may have increased in size. The right pleural effusion is unchange d. Cardiac: Similar size and configuration Mediastinum: Within normal limits. Bones: No acute fractures. Other: Surgical clips in left axilla. IMPRESSION: Worsened aeration of the left lung base could be due to increased pleural fluid and/or w orsening pneumonia. Similar to minimally improved aeration of the right lung.
--- NOTE | 2022-04-21 16:27 | PN ---
Date of Progress Note: 04/21/2022 Subjective: The patient was seen this morning for followup. No new complaints or problems reported by the patient. She was in ICU, feeling well. Denies any complaints. No chest pain. No shortness of breath. Has not had a bowel movement since she has been in the hospital. No abdominal pain, naus ea, vomiting. She has good appetite. Vital signs reviewed in the last 24 hours. Her vasopressor me dication was discontinued almost 18-20 hours ago and since that time her systolic blood pressure has remained in range of 90-108 systolic. This morning when I saw her, her blood pressure was 100/44, ox ygen saturation was 97% on room air, and she is in sinus rhythm. Physical Examination: HEENT: Examination unremarkable. Lungs: Clear to auscultation. No rhonchi. No rales. Heart: Sounds normal. Abdomen: Soft. Bowel sounds normal. No guarding, rigidity, tenderness, distention. Extremities: No leg edema. Laboratory Data: White count 10.9, hemoglobin 9.4, platelets 487. Sodium 142, potassium 3.5, chlori de 109, bicarb 26, BUN 7, creatinine 0.35, glucose 89, magnesium 2.1. Impression: 1.Septic shock. 2.Paroxysmal atrial fibrillation. 3.Anemia, unspecified. 4.Hypokalemia, resolved. 5.Pneumonia. 6.Volume depletion, resolved. 7.Rule out Clostridium difficile colitis. Plan: We will go ahead and continue current antibiotic which is Zosyn and oral vancomycin. The garrison ent is now on oral amiodarone. We will continue Lovenox injection and either later today or tomorrow we will change it to Eliquis. The patient was advised to get out of bed and start to ambulate today with assistance and medically she is stable for transfer to medical floor. Transfer order was retur zach. If room is available, we will be transferring her to medical floor. Otherwise, she may stay in ICU as overflow patient, but ambulation was encouraged. Our plan is to discharge her to go home sabas orrow and details were discussed with her and I also called her nephew, Dr. Telles and discussed de tails with him as well. We will repeat chest x-ray today. ROSEMARIE/MODL Voice ID: [id number] Report ID: [id number]
[2022-04-22] MEDS: PIPER TAZO 3.375 GM in NA CHLORIDE 0.9% 100 ML IV SCH ×2 (00:53→09:06)
[2022-04-22] MEDS: VANCOMYCIN ORAL SOLN 250 MG/5 ML OSYR PO SCH ×2 (02:53→09:05)
[2022-04-22] MEDS: ENOXAPARIN 60 MG/0.6 ML SQ SCH (05:26)
[2022-04-22] MEDS: AMIODARONE HCL 200 MG TAB PO SCH (09:06)
[2022-04-22 09:08] VITALS: O2SAT 97
[2022-04-22 09:26] VITALS: TEMP 97.7
[2022-04-22 11:35] LABS: C.diff Antigen/Toxin Ag neg : Tox neg (NEG : NEG)
--- NOTE | 2022-04-22 11:41 | DS ---
Date of Discharge: 04/22/2022 Disposition: Discharged to go home. Physical Examination: HEENT: Unremarkable. Lungs: Clear to auscultation. Heart: Sounds normal. Abdomen: Soft. Bowel sounds normal. No guarding, rigidity, tenderness, distention. Extremities: No leg edema. Laboratory Data: Upon admission, sodium 133, potassium 3.5, chloride 97, bicarb 24, BUN 13, creatini ne 0.64, glucose 100. Lactic acid 2.6. Repeat lactic acid 1.3. Liver function tests unremarkable. Last chemistry yesterday, sodium 142, potassium 3.5, chloride 109, bicarb 26, BUN 7, creatinine 0.35 , glucose 89. EGFR 101. Magnesium . Last CBC from yesterday white count 10.9, hemoglobin 9.4, platelets 487. Upon admission, white count was 24.4, hemoglobin 10.8, platelets 514. Discharge Medications And Instructions: Continue prior home medication except stop Evista, which is raloxifene. Take following new medications and prescriptions will be sent to [facility]. 1.Amiodarone 200 mg take 2 tablets by mouth 2 times a day. 2.Eliquis 2.5 mg take 1 tablet by mouth 2 times a day. 3.Augmentin 500 mg take 1 tablet by mouth 2 times a day with food for 1 week. 4.Take vancomycin 125 mg p.o. 4 times a day for 1 week. 5.Follow up at my office on , 04/26/2022. Hospital Course: This is an 82-year-old very pleasant female patient came into emergency room with d iarrhea and feeling weak. Please see dictated H and P for more information. Patient was evaluated i n the emergency room and was admitted to intensive care unit with septic shock, atrial fibrillation w ith rapid ventricular rate, pneumonia, and concerns about possibility of Clostridium difficile coliti s. She had volume depletion. She was given IV fluid in the emergency room per sepsis protocol and t hen maintenance IV fluid was started. Empiric antibiotic, Zosyn, was started and stool for C diff wa s ordered, but unfortunately patient did not have any bowel movement because she had taken Imodium at home prior to coming to the hospital and since she did not have a bowel movement, we did make the de cision to start her on vancomycin on empiric basis because clinical suspicion for Clostridium diffici le colitis was high. So, the patient received IV Zosyn and oral vancomycin. Her condition improved throughout this hospitalization. White count came down to normal. About 24-48 hours after her admis tiffany, we discontinued IV fluid. Patient's appetite has improved over period of this hospitalization. As of yesterday, she started ambulating well and she is maintaining normal blood pressure on her ow n. She has not required any oxygen replacement and has maintained normal oxygen saturation. Initial ly, she was on vasopressor medication, Levophed, which we were able to discontinue it and she has graham ntained normal blood pressure without use of such medication. Overall, her condition has improved si gnificantly and today after I saw her, she had a bowel movement. This is her first bowel movement fo r this hospital admission and we will try to send that stool specimen for Clostridium difficile toxin . Her stool was soft. Overall, patient's condition has improved significantly and she is being disc harged to go home now in stable condition with above-mentioned medication instructions. Patient rece ived IV amiodarone for atrial fibrillation with rapid ventricular rate and this is new onset atrial f ibrillation. Cardiology consultation was also requested. Her echocardiogram showed normal ejection fraction and very small pericardial effusion. She did convert to sinus rhythm with amiodarone and it was changed from IV to oral amiodarone. We will go ahead and follow up with echocardiogram on an el ective outpatient basis over next month to 2 months for a followup on this small pericardial effusion . Today, I did discuss with her regarding importance of fall preventions and precautions to take to avoid any kind of fall or head injury and in case if she ends up having any head injury while taking this blood thinner medication, she will need to come to emergency room. She was also advised to avoi d any sharp objects like scissors and knives and if she has any bleeding problem from any skin cut or nosebleed, coughing up blood or blood in urine or stool then also to report to emergency room. Final Diagnoses: 1.Septic shock. 2.Atrial fibrillation with rapid ventricular rate, new onset, converted to normal sinus rhythm with IV amiodarone. 3.Pneumonia. 4.Rule out Clostridium difficile colitis. 5.Volume depletion. 6.Left breast cancer. 7.Osteopenia. 8.Diverticulosis. 9.Allergic rhinitis. 10.Small pericardial effusion. ROSEMARIE/MODL Voice ID: [id number] Report ID: [id number]
[2022-04-22 11:56] VITALS: BP 102/83
--- NOTE | 2022-04-22 19:02 | PN ---
Date of Progress Note: 04/21/2022 The patient has been followed for atrial fibrillation, rapid ventricular response. She is a patient of Dr. Roy, has been seen by Dr. Ayala. She was placed on IV amiodarone drip. She continued to be on antibiotic. She is off Levophed. She is in sinus rhythm right now. She had came in with possib le C difficile, dehydration, and elevated white count. She may be a good candidate down the road for a Watchman procedure because of her atrial fibrillation that will be discussed with her and with Dr. Roy and with Dr. Ayala as an outpatient. For now, I think we should switch her to p.o. amiodarone 400 b.i.d. for a week and then 200 mg daily after that. RAMÍREZ/LAMAR Voice ID: [id number] Report ID: [id number]
== END 2022-04-22 11:25 | disposition home or self-care (01) | DRG 871 ==
LOC: ER 02:07 → ERHOLD 05:35 → 3RD-ICU 14:00
PROVIDERS: ADMIT Internal Medicine; ATTEND Internal Medicine
DX: A41.9 Sepsis, unspecified organism (principal); J18.9 Pneumonia, unspecified organism; R65.21 Severe sepsis with septic shock; I48.19 Other persistent atrial fibrillation; I47.1 Supraventricular tachycardia; A04.72 Enterocolitis due to Clostridium difficile, not specified as recurrent; I31.39 Other pericardial effusion (noninflammatory); E86.0 Dehydration; I10 Essential (primary) hypertension; E78.5 Hyperlipidemia, unspecified; E87.6 Hypokalemia; D64.9 Anemia, unspecified; E86.9 Volume depletion, unspecified; M85.80 Other specified disorders of bone density and structure, unspecified site; K57.90 Diverticulosis of intestine, part unspecified, without perforation or abscess without bleeding; J30.9 Allergic rhinitis, unspecified; C50.912 Malignant neoplasm of unspecified site of left female breast; Z88.1 Allergy status to other antibiotic agents; Z88.8 Allergy status to other drugs, medicaments and biological substances; Z85.3 Personal history of malignant neoplasm of breast; Z90.13 Acquired absence of bilateral breasts and nipples; Z90.710 Acquired absence of both cervix and uterus; Z20.822 Contact with and (suspected) exposure to COVID-19
CPT/HCPCS: 0240U; 36415; 71045; 71250; 74177; 80048; 80053; 81003; 81015; 83605; 83735; 85025; 85610; 85730; 87040; 87086; 87088; 87324; 93005; 93306; 99285; J0282; J1650; J2543; J3370; J3475; J3480; J7030; J7060; Q9967